=== PATIENT | female | born 1945 | race Caucasian/White ===

== ENCOUNTER → 2016-07-10 | Outpatient (CLI) | payer OTHER ==
[~2016-07-10] MED LIST: CTP/1 PO; METO-596 PO; QUET1TAB32 PO; SERT-234 PO; SIMV40TA2 PO
[2016-07-10 13:26] LABS: CALCIUM 9.3 mg/dl (8.5-10.1)
[2016-07-10 13:27] LABS: ALT/SGPT 25 U/L (12-78); BLOOD UREA NITROGEN 11 mg/dl (7-18); BUN/CREATININE RATIO 16.3 (10-20); CARBON DIOXIDE 29 mmol/L (21-32); CHLORIDE 97 mmol/L (98-107); CHOLESTEROL 144 mg/dl (0-200); CREATININE 0.68 mg/dl (0.60-1.20); GLUCOSE 96 mg/dl (70-99); POTASSIUM 4.2 mmol/L (3.5-5.1); SODIUM 134 mmol/L (136-145)
[2016-07-10 13:37] LABS: ALB/GLOB RATIO 1.1 (0.9-2); ALKALINE PHOSPHATASE 105 U/L (45-117); AST/SGOT 30 U/L (15-37); CHOLESTEROL/HDL RATIO 2.9; HDL CHOLESTEROL 50 mg/dl; LDL CHOLESTEROL CALCULATED 73 mg/dl; TRIGLYCERIDES 104 mg/dl (0-150); VERY LOW DENSITY LIPOPROT CALC 21 mg/dl
== END | disposition home or self-care (01) ==
LOC: C.LABPVFM 09:09
PROVIDERS: ATTEND Family Medicine
DX: I10 Essential (primary) hypertension (principal); E55.9 Vitamin D deficiency, unspecified; M81.0 Age-related osteoporosis without current pathological fracture; F32.9 Major depressive disorder, single episode, unspecified; E78.5 Hyperlipidemia, unspecified

== ENCOUNTER → 2016-07-15 | Outpatient (CLI) | payer OTHER | END | disposition home or self-care (01) | LOC: C.LABPVFM 09:45 | PROVIDERS: ATTEND Family Medicine | DX: R94.6 Abnormal results of thyroid function studies (principal) ==

== ENCOUNTER → 2017-03-01 | Outpatient (CLI) | payer OTHER ==
[2017-03-01 13:28] LABS: BLOOD UREA NITROGEN 11 mg/dl (7-18); CALCIUM 9.3 mg/dl (8.5-10.1); CARBON DIOXIDE 28 mmol/L (21-32); GLUCOSE 91 mg/dl (70-99); SODIUM 135 mmol/L (136-145)
== END | disposition home or self-care (01) ==
LOC: C.LABPVFM 09:50
PROVIDERS: ATTEND Family Medicine
DX: I10 Essential (primary) hypertension (principal); E55.9 Vitamin D deficiency, unspecified; M81.0 Age-related osteoporosis without current pathological fracture; E78.5 Hyperlipidemia, unspecified; F32.9 Major depressive disorder, single episode, unspecified

== ENCOUNTER 2017-05-08 13:01 | Inpatient (IN) | payer OTHER ==
[~2017-05-08] VITALS: Ht 152.4 cm; Wt 37.5 kg
[2017-05-08] VITALS (8 sets, daily range): BP systolic 94–151; BP diastolic 60–91; PULSE 83–98; TEMP 36.7–36.8; O2SAT 92–99; BMI 19.1
[2017-05-08] MEDS ORDERED: METHYLPREDNISOLONE 125 MG VIAL IV STA (13:11)
[2017-05-08] MEDS ORDERED: ALBUT/IPRATROP 3MG/0.5MG NEB 3 ML VIAL INH ONE (13:15)
[2017-05-08] MEDS ORDERED: LEVAQUIN 750MG / 150ML D5W IV STA (13:21)
[2017-05-08] MEDS ORDERED: PIPERACILLIN/TAZOBACTAM 4.5 GM/100ML D5W IV STA (13:21)
--- NOTE | 2017-05-08 13:31 | DIAGNOSTIC IMAGING REPORT ---
CHEST ONE VIEW PORTABLE HISTORY: 71 years-old Female eval for ptx/pna acute shortness of breath with hypoxia COMPARISON: Chest radiograph 09/29/2015, CT neck 03/16/2007 TECHNIQUE: Portable AP view of the chest FINDINGS: Cardiac silhouette is mildly enlarged, unchanged. Atherosclerosis of the aorta. Biapical pleural-parenchymal scarring is noted with emphysema. Mild perivascular congestion. Areas of chronic interstitial coarsening redemonstrated with new interstitial opacities, right greater than left. Additionally there are patchy bibasilar right greater than left alveolar opacities with trace right pleural effusion. The bones of the chest appear demineralized. Subacute or chronic fracture of the lateral left fifth rib. IMPRESSION: 1. Cardiomegaly and emphysema with chronic interstitial coarsening and mild pulmonary vascular congestion. 2. Patchy right greater than left bibasilar opacities with trace right pleural effusion suspicious for pneumonitis or atelectasis. The above report was generated using voice recognition software. It may contain grammatical, syntax or spelling errors. Electronically signed by: Shorty Byrd M.D. 05/08/2017 1:30 PM Dictated Date/Time: 05/08/2017 1:26 PM
[2017-05-08 13:44] LABS: BASO % 0.1 %; BASO ABS # 0.03 K/uL (0-0.2); EOS % 0.1 %; EOS ABS # 0.02 K/uL (0-0.5); HEMATOCRIT 42.9 % (37-47); HEMOGLOBIN 14.1 g/dL (12.0-16.0); IG# 0.12 K/uL (0.00-0.02); LYMPH % 10.2 %; LYMPH ABS # 2.08 K/uL (1.2-3.4); MEAN CELL VOLUME 89.6 fL (80-100); MEAN CORPUSCULAR HEMOGLOBIN 29.4 pg (25-34); MEAN CORPUSCULAR HGB CONC 32.9 g/dl (32-36); MEAN PLATELET VOLUME 9.5 fL (7.4-10.4); MONO % 6.3 %; MONO ABS # 1.28 K/uL (0.11-0.59); NEUT % 82.7 %; NEUT ABS # 16.92 K/uL (1.4-6.5); PLATELET COUNT 322 K/uL (130-400); RED CELL DISTRIBUTION WIDTH CV 14.5 % (11.5-14.5); RED CELL DISTRIBUTION WIDTH SD 47.5 fL (36.4-46.3); WHITE BLOOD COUNT 20.45 K/uL (4.8-10.8)
[2017-05-08 14:01] LABS: CALCIUM 8.8 mg/dl (8.5-10.1); CREATININE 0.78 mg/dl (0.60-1.20); POTASSIUM 4.4 mmol/L (3.5-5.1)
[2017-05-08 14:07] LABS: INR 1.1 (0.9-1.1); PTT PATIENT 24.5 SECONDS (21.0-31.0)
[2017-05-08] MEDS ORDERED: POLYETHYLENE (MIRALAX) 17 GM PACK PO PRN (14:15)
[2017-05-08] MEDS ORDERED: ONDANSETRON INJ 2 MG/ML 2 ML VIAL IV PRN (14:15)
[2017-05-08] MEDS ORDERED: ALUMINUM/MAGNESIUM/SIMETH (MAALOX MAX) 30 ML UDC PO PRN (14:15)
[2017-05-08] MEDS ORDERED: ACETAMINOPHEN 325 MG TAB PO PRN (14:15)
[2017-05-08 14:18] LABS: INFLUENZA A PCR Neg for Influ A (NEG); INFLUENZA B PCR Neg for Influ B (NEG)
[2017-05-08] MEDS ORDERED: TPRSR50 PO (14:44)
[2017-05-08] MEDS ORDERED: VTMD1000 PO (14:44)
[2017-05-08] MEDS ORDERED: ATOR80TA PO (14:44)
[2017-05-08] MEDS ORDERED: LOSA50TA6 PO (14:44)
[2017-05-08] MEDS ORDERED: SERT-234 PO (14:44)
[2017-05-08] MEDS ORDERED: QUET1TAB32 PO (14:44)
[2017-05-08] MEDS ORDERED: ASPEC81 PO (14:48)
--- NOTE | 2017-05-08 14:57 | History and Physical ---
History & Physical Date & Time of Service: May 08, 2017 at 14:56 Chief Complaint: Breathing Difficulty Primary Care Physician: Rowena Silveira M.D. Past Medical/Surgical History Medical Problems: (1) HLD (hyperlipidemia) (2) HTN (hypertension) Family History Cancer Diabetes mellitus Heart disease Hypertension Social History Smoking Status: Current Every Day Smoker Marital Status: in relationship Housing status: lives with friends Occupational Status: disabled Allergies Coded Allergies: No Known Allergies (Unverified , 09/18/03) Uncoded Allergies: NKDA (Allergy, Unknown, 09/17/03) Home Medications Scheduled Aspirin (Aspirin EC Low Dose), 1 TAB PO DAILY Atorvastatin (Lipitor), 80 MG PO HS Cholecalciferol (Vitamin D3), 3,000 UNIT PO DAILY Clonidine Hcl (Catapres), 0.2 MG PO BID Losartan Potassium (Cozaar), 1 TAB PO DAILY Metoprolol Succinate (Metoprolol Succinate ER), 100 MG PO DAILY Quetiapine Fumarate (Seroquel), 50 MG PO HS Sertraline (Zoloft), 100 MG PO BID Physical Exam Vital Signs Date Time Temp Pulse Resp B/P (MAP) Pulse Ox O2 Delivery O2 Flow Rate FiO2 05/08/17 14:10 78 05/08/17 14:00 84 16 159/83 99 BiPAP 05/08/17 13:39 86 22 141/119 100 BiPAP 10.0 05/08/17 13:27 98 99 100 05/08/17 13:26 98 25 98 BiPAP/CPAP 100 05/08/17 13:01 36.3 101 30 216/117 87 Non-Rebreather 15.0 05/08/17 13:01 36.3 101 30 216/117 66 Room Air 05/08/17 13:01 66 Room Air 05/08/17 13:01 87 Non-Rebreather Diagnostics Laboratory Results Results Past 24 Hours Test 05/08/17 13:13 05/08/17 13:25 05/08/17 13:42 Range/Units Influenza Type A (RT-PCR) Neg for Influ A NEG Influenza Type B (RT-PCR) Neg for Influ B NEG White Blood Count 20.45 4.8-10.8 K/uL Red Blood Count 4.79 4.2-5.4 M/uL Hemoglobin 14.1 12.0-16.0 g/dL Hematocrit 42.9 37-47 % Mean Corpuscular Volume 89.6 80-100 fL Mean Corpuscular Hemoglobin 29.4 25-34 pg Mean Corpuscular Hemoglobin Concent 32.9 32-36 g/dl Platelet Count 322 130-400 K/uL Mean Platelet Volume 9.5 7.4-10.4 fL Neutrophils (%) (Auto) 82.7 % Lymphocytes (%) (Auto) 10.2 % Monocytes (%) (Auto) 6.3 % Eosinophils (%) (Auto) 0.1 % Basophils (%) (Auto) 0.1 % Neutrophils # (Auto) 16.92 1.4-6.5 K/uL Lymphocytes # (Auto) 2.08 1.2-3.4 K/uL Monocytes # (Auto) 1.28 0.11-0.59 K/uL Eosinophils # (Auto) 0.02 0-0.5 K/uL Basophils # (Auto) 0.03 0-0.2 K/uL RDW Standard Deviation 47.5 36.4-46.3 fL RDW Coefficient of Variation 14.5 11.5-14.5 % Immature Granulocyte % (Auto) 0.6 % Immature Granulocyte # (Auto) 0.12 0.00-0.02 K/uL Prothrombin Time 11.1 9.0-12.0 SECONDS Prothromb Time International Ratio 1.1 0.9-1.1 Activated Partial Thromboplast Time 24.5 21.0-31.0 SECONDS Partial Thromboplastin Ratio 0.9 Sodium Level 139 136-145 mmol/L Potassium Level 4.4 3.5-5.1 mmol/L Chloride Level 103 98-107 mmol/L Carbon Dioxide Level 29 21-32 mmol/L Anion Gap 7.0 3-11 mmol/L Blood Urea Nitrogen 16 7-18 mg/dl Creatinine 0.78 0.60-1.20 mg/dl Est Creatinine Clear Calc Drug Dose 47.6 ml/min Estimated GFR () 89.9 Estimated GFR (Non- 77.6 BUN/Creatinine Ratio 20.3 10-20 Random Glucose 117 70-99 mg/dl Calcium Level 8.8 8.5-10.1 mg/dl Bedside Lactic Acid Venous 3.06 0.90-1.70 mmol/L Microbiology Results 05/08/17 Blood Culture, Received Pending 05/08/17 Blood Culture, Received Pending Impression Assessment and Plan admit #[id number] Resuscitation Status VTE Prophylaxis Will order VTE Prophylaxis: Yes
[2017-05-08] MEDS ORDERED: SODIUM CHLORIDE 0.9% 1000ML 1,000 ML IV ONE (15:00)
[2017-05-08] MEDS ORDERED: ERGOCALCIFEROL 50,000 INTER.UNIT CAP PO ONE (15:00)
[2017-05-08] MEDS ORDERED: ALBUT/IPRATROP 3MG/0.5MG NEB 3 ML VIAL INH PRN (15:15)
--- NOTE | 2017-05-08 15:31 | EMERGENCY ROOM VISIT NOTE ---
History Report prepared by Ivana: Christoph Mcgregor Under the Supervision of: Dr. Luis Felipe Lancaster M.D. First contact with patient: 13:04 Stated Complaint: BREATHING DIFFICULTY History of Present Illness The patient is a 71 year old female who presents to the Emergency Room with complaints of constant shortness of breath for the past 4 days. Per the nursing staff the patient has been feeling tired, and she has had a non-productive cough for the past 2 days. The patient's neighbors gave the patient a Ventolin and a DuoNeb. The patient was 90% on a non rebreather prior to arrival. She was 70 percent on room air per the paramedics. The patient states that she is not on oxygen at home, and she has no history of COPD, though she smokes and is trying to cut back. She states that she vomited earlier, and she has been having some swelling in her legs. The patient denies any fever, chest pain, and abdominal pain. She has a history of hypertension and high cholesterol. Source of History: patient, nursing staff Onset: 4 days Position: other (global) Symptom Intensity: severe Quality: other (shortness of breath) Timing: constant Associated Symptoms: + cough, + vomiting, No fevers, No chest pain, No abdominal pain Note: Associated symptoms: Leg swelling Review of Systems See HPI for pertinent positives & negatives. A total of 10 systems reviewed and were otherwise negative. Past Medical & Surgical Medical Problems: (1) Community acquired bacterial pneumonia (2) HLD (hyperlipidemia) (3) HTN (hypertension) (4) Sepsis Family History Cancer Diabetes mellitus Heart disease Hypertension Social History Alcohol Use: none Marital Status: in relationship Occupation Status: disabled Current/Historical Medications Scheduled Aspirin (Aspirin EC Low Dose), 1 TAB PO DAILY Atorvastatin (Lipitor), 80 MG PO HS Cholecalciferol (Vitamin D3), 3,000 UNIT PO DAILY Clonidine Hcl (Catapres), 0.2 MG PO BID Losartan Potassium (Cozaar), 1 TAB PO DAILY Metoprolol Succinate (Metoprolol Succinate ER), 100 MG PO DAILY Quetiapine Fumarate (Seroquel), 50 MG PO HS Sertraline (Zoloft), 100 MG PO BID Allergies Coded Allergies: No Known Allergies (Unverified , 09/18/03) Physical Exam Vital Signs Date Time Temp Pulse Resp B/P (MAP) Pulse Ox O2 Delivery O2 Flow Rate FiO2 05/08/17 14:10 78 05/08/17 14:01 82 23 159/83 100 BiPAP 05/08/17 14:00 84 16 159/83 99 BiPAP 05/08/17 13:39 86 22 141/119 100 BiPAP 10.0 05/08/17 13:38 141/119 05/08/17 13:27 98 99 100 05/08/17 13:26 98 25 98 BiPAP/CPAP 100 05/08/17 13:01 36.3 101 30 216/117 87 Non-Rebreather 15.0 05/08/17 13:01 36.3 101 30 216/117 66 Room Air 05/08/17 13:01 66 Room Air 05/08/17 13:01 87 Non-Rebreather Physical Exam Constitutional: Vital signs reviewed. Eyes: Pupils are equal round reactive to light. Conjunctiva are noninjected. ENT: Pharynx is clear without erythema or exudate. Mucous membranes are moist. Neck supple without meningeal signs. Respiratory: Poor air entry bilaterally. Expiratory wheezing diffusely. Pulse Ox was 62% on room air. Tachypneic. Cardiovascular: Regular rate and rhythm. No rubs or gallops. GI: Soft, nondistended and nontender. Bowel sounds are present. Musculoskeletal: Bilateral lower extremity pitting edema. Integumentary: No cyanosis. Neurological: The patient is awake and alert. No focal deficits. Psychiatric: Anxious appearing. Medical Decision & Procedures ER Provider Diagnostic Interpretation: Radiology results as stated below per my review and the radiologist's interpretation: CHEST ONE VIEW PORTABLE HISTORY: 71 years-old Female eval for ptx/pna acute shortness of breath with hypoxia COMPARISON: Chest radiograph 09/29/2015, CT neck 03/16/2007 TECHNIQUE: Portable AP view of the chest FINDINGS: Cardiac silhouette is mildly enlarged, unchanged. Atherosclerosis of the aorta. Biapical pleural-parenchymal scarring is noted with emphysema. Mild perivascular congestion. Areas of chronic interstitial coarsening redemonstrated with new interstitial opacities, right greater than left. Additionally there are patchy bibasilar right greater than left alveolar opacities with trace right pleural effusion. The bones of the chest appear demineralized. Subacute or chronic fracture of the lateral left fifth rib. IMPRESSION: 1. Cardiomegaly and emphysema with chronic interstitial coarsening and mild pulmonary vascular congestion. 2. Patchy right greater than left bibasilar opacities with trace right pleural effusion suspicious for pneumonitis or atelectasis. The above report was generated using voice recognition software. It may contain grammatical, syntax or spelling errors. Electronically signed by: Shorty Byrd M.D. 05/08/2017 1:30 PM Dictated Date/Time: 05/08/2017 1:26 PM Laboratory Results 05/08/17 13:25 Red Blood Count 4.79, Mean Corpuscular Volume 89.6, Mean Corpuscular Hemoglobin 29.4, Mean Corpuscular Hemoglobin Concent 32.9, Mean Platelet Volume 9.5, Neutrophils (%) (Auto) 82.7, Lymphocytes (%) (Auto) 10.2, Monocytes (%) (Auto) 6.3, Eosinophils (%) (Auto) 0.1, Basophils (%) (Auto) 0.1, Neutrophils # (Auto) 16.92, Lymphocytes # (Auto) 2.08, Monocytes # (Auto) 1.28, Eosinophils # (Auto) 0.02, Basophils # (Auto) 0.03 05/08/17 13:25 Test 05/08/17 13:13 05/08/17 13:25 05/08/17 13:42 Influenza Type A (RT-PCR) Neg for Influ A (NEG) Influenza Type B (RT-PCR) Neg for Influ B (NEG) White Blood Count 20.45 K/uL (4.8-10.8) Red Blood Count 4.79 M/uL (4.2-5.4) Hemoglobin 14.1 g/dL (12.0-16.0) Hematocrit 42.9 % (37-47) Mean Corpuscular Volume 89.6 fL (80-100) Mean Corpuscular Hemoglobin 29.4 pg (25-34) Mean Corpuscular Hemoglobin Concent 32.9 g/dl (32-36) Platelet Count 322 K/uL (130-400) Mean Platelet Volume 9.5 fL (7.4-10.4) Neutrophils (%) (Auto) 82.7 % Lymphocytes (%) (Auto) 10.2 % Monocytes (%) (Auto) 6.3 % Eosinophils (%) (Auto) 0.1 % Basophils (%) (Auto) 0.1 % Neutrophils # (Auto) 16.92 K/uL (1.4-6.5) Lymphocytes # (Auto) 2.08 K/uL (1.2-3.4) Monocytes # (Auto) 1.28 K/uL (0.11-0.59) Eosinophils # (Auto) 0.02 K/uL (0-0.5) Basophils # (Auto) 0.03 K/uL (0-0.2) RDW Standard Deviation 47.5 fL (36.4-46.3) RDW Coefficient of Variation 14.5 % (11.5-14.5) Immature Granulocyte % (Auto) 0.6 % Immature Granulocyte # (Auto) 0.12 K/uL (0.00-0.02) Prothrombin Time 11.1 SECONDS (9.0-12.0) Prothromb Time International Ratio 1.1 (0.9-1.1) Activated Partial Thromboplast Time 24.5 SECONDS (21.0-31.0) Partial Thromboplastin Ratio 0.9 Anion Gap 7.0 mmol/L (3-11) Est Creatinine Clear Calc Drug Dose 47.6 ml/min Estimated GFR () 89.9 Estimated GFR (Non- 77.6 BUN/Creatinine Ratio 20.3 (10-20) Calcium Level 8.8 mg/dl (8.5-10.1) Bedside Lactic Acid Venous 3.06 mmol/L (0.90-1.70) Laboratory results as reviewed by me. Medications Administered Medications (Trade) Dose Ordered Sig/Sam Route Start Time Stop Time Status Last Admin Dose Admin Methylprednisolone Sodium Succinate (Solu-Medrol IV) 125 mg NOW STAT IV 05/08/17 13:11 05/08/17 13:13 DC 05/08/17 13:11 125 MG Albuterol/ Ipratropium (Duoneb) 12 ml ONE ONCE INH 05/08/17 13:15 05/08/17 13:16 DC 05/08/17 13:26 12 ML Levofloxacin (Levaquin / D5W) 750 mg NOW STAT IV 05/08/17 13:21 05/08/17 13:22 DC 05/08/17 14:21 750 MG Piperacillin Sod/ Tazobactam Sod (Zosyn Iv) 4.5 gm NOW STAT IV 05/08/17 13:21 05/08/17 13:22 DC 05/08/17 13:31 4.5 GM ECG Per My Interpretation Indication: SOB/dyspnea Rate (beats per minute): 100 Rhythm: normal sinus Findings: other (Limited interpretation due to artifact. No ST elevations. No PVCs.) ED Course 1304: The patient was evaluated in room C9. A complete history and physical exam was performed. 1311: Solu-Medrol 125mg IV 1315: DuoNeb 12ml INH 1321: Zosyn 4.5gm IV, Levofloxacin 750mg IV 1327: I reevaluated the patient, and her pulse ox was 100% on BIPAP, and she states that she is feeling much better. I discussed the test results with her and her son. She also said the she has no objection to intubation if indicated. 1356: I reevaluated the patient, and her blood pressure was significantly improved. She is still satting 99% on BIPAP. 1404: I discussed the patient's case with Dr. Shai PERERA Hospitalist, and he is going to evaluated the patient for further treatment. 1455: I reevaluated the patient, and she feels much better. She is having diminished wheezing on examination. Medical Decision This is a 71-year-old female presents with shortness of breath. Differential diagnosis includes COPD exacerbation, pneumothorax, pneumonia, ARDS, sepsis. I did perform a limited focused review of portions of the patient's old chart on the electronic medical record. The patient has had no recent pertinent visits to this hospital. I did evaluate the patient as noted above. IV access was established. The patient was placed on a continuous compliance monitor. The patient is hypoxemic with an O2 saturation of 60% on room air. She is able to mentate and answer questions. She was placed on a nonrebreather mask and her O2 saturation went up to the 90s. I did order a continuous hour-long DuoNeb. She was also given Solu-Medrol 125 mg IV. She was placed on BiPAP. I did order and personally review the patient's 12-lead EKG and chest x-ray as described above. Blood cultures were obtained. I did treat her with IV Levaquin and Zosyn. I did order and review the patient's blood work as noted in the electronic medical record. Her white blood cell count and lactic acid are elevated. I did reassess the patient multiple times. She is doing better on BiPAP. Her wheezing has diminished. I did discuss the test results with the patient and her family. I did discuss case with the hospitalist and rehabilitation caseworker. Medication Reconcilliation Current Medication List: was personally reviewed by me Blood Pressure Screening Patient's blood pressure: Elevated blood pressure Monitored by the hospitalist Consults Time Called: 1358 Consulting Physician: Dr. Shai PERERA Hospitalist Returned Call: 1404 I discussed the patient's case with Dr. Shai PERERA Hospitalist, and he is going to evaluated the patient for further treatment. Impression Primary Impression: Respiratory failure Additional Impressions: Hypoxemia Multifocal pneumonia Sepsis Critical Care I have personally spent 36 minutes of critical care time in the direct management of this patient. This includes bedside care, interpretation of diagnostic studies, and testing, discussion with consultants, patient, and family members, and other required patient management activities. This 36 minutes is in excess of all separately billable procedures. Scribe Attestation The scribe's documentation has been prepared under my direct and personally reviewed by me in its entirety. I confirm that the note above accurately reflects all work, treatment, procedures, and medical decision making performed by me. Departure Information Dispostion Being Evaluated By Hospitalist Prescriptions Aspirin (Aspirin EC Low Dose) 81 Mg Ectab 1 TAB PO DAILY, #1 Prov: Jules iGbbons D.OYonathan 05/08/17 Cholecalciferol (Vitamin D3) 1,000 Inter.unit Tab 3000 UNIT PO DAILY, #1 Prov: Jules Gibbons D.OYonathan 05/08/17 Metoprolol Succinate (Metoprolol Succinate ER) 50 Mg Tabcr 100 MG PO DAILY, #1 Prov: Jules Gibbons D.O. 05/08/17 Losartan Potassium (COZAAR) 50 Mg Tab 1 TAB PO DAILY for 30 Days, #30 TAB 5 Refills Prov: Jules Gibbons D.O. 05/08/17 Atorvastatin (LIPITOR) 80 Mg Tab 80 MG PO HS, #30 TAB Prov: Jules Gibbons D.OYonathan 05/08/17 Quetiapine Fumarate (Seroquel) 50 Mg Tab 50 MG PO HS, #1 0 Refills Prov: Jules Gibobns D.O. 05/08/17 Sertraline (Zoloft) 100 Mg Tab 100 MG PO BID, #1 0 Refills Prov: Jules Gibbons D.O. 05/08/17 Referrals Rowena Silveira M.D. (PCP) Problem Qualifiers Primary Impression: Respiratory failure Chronicity: acute Respiratory failure complication: hypoxia Qualified Codes : J96.01 - Acute respiratory failure with hypoxia Additional Impressions: Sepsis Sepsis type: sepsis due to unspecified organism Qualified Codes: A41.9 - Sepsis, unspecified organism
--- NOTE | 2017-05-08 15:31 | HISTORY & PHYSICAL EXAMINATION ---
DATE OF ADMISSION: 05/08/2017 CHIEF COMPLAINT: Shortness of breath. HISTORY OF PRESENT ILLNESS: History is somewhat limited due to the patient being on BiPAP; however, as best she is able to, she relates that she has been sick generally with respiratory illness for several weeks, just not really feel right, but not feeling acutely terrible and then today, she abruptly noticed feeling far worse very much short of breath and came to the ER for further evaluation, where she was found to be significantly hypoxic and had a rather extensive pneumonia. Per the ER physician, she related a constant shortness of breath for the past 4 days, feeling tired, nonproductive cough for about 2 days, neighbors gave her nebulizers. She was 90% on a nonrebreather prior to arrival. She does smoke about 2/3-3/4 of a pack a day. She otherwise has no other acute symptoms. REVIEW OF SYSTEMS: Otherwise negative except for as above. PAST MEDICAL HISTORY: Includes a longstanding tobacco abuse without a formal diagnosis of COPD, depression, dyslipidemia, hypertension with a significant white coat component, carotid artery disease being followed expectantly, osteoporosis, and vitamin D deficiency. HOME MEDICATIONS: Aspirin 81 mg daily, Lipitor 80 mg daily, clonidine 0.2 b.i.d., losartan 50 mg daily, metoprolol succinate ER 100 mg daily, Seroquel 50 mg at bedtime, Zoloft 100 mg b.i.d., and vitamin D3 of 3000 international units daily. PAST SURGICAL HISTORY: Includes biceps tendon repair. FAMILY HISTORY: Cancer, diabetes, hypertension, and heart disease. SOCIAL HISTORY: She is currently smoking about 3/4 of a pack a day. She has been a smoker for probably 50-60 years, giving her probably at least 40-50 pack years of smoking if she was always at the current rate. ALLERGIES: No known drug allergies. PHYSICAL EXAMINATION: VITAL SIGNS: Temperature 36.3, pulse 101, respiratory rate 30, blood pressure 216/117 and later down to 159/83, and 66% on room air, 87% on a nonrebreather, but 100% on 100% FiO2 BiPAP. GENERAL: She is awake, alert, and oriented x3, fatigued, and in mild respiratory distress, but appearing relatively comfortable on the BiPAP. HEENT: Normocephalic and atraumatic. Mucous membranes moist as best can be assessed. CARDIOVASCULAR: Very distant. Sounds to be regular, maybe slightly tachycardic without rubs, murmurs, or gallops. LUNGS: Markedly diminished throughout with very little air entry. No notable rales, rhonchi or wheezes. The ER physician noted to me she was wheezing earlier, but at this point in time it is mostly significant for diminished air entry. There is no accessory muscle use in general, except for maybe mild neck muscle use. ABDOMEN: Soft, nondistended, and nontender. No masses or organomegaly. EXTREMITIES: Without cyanosis, clubbing or edema. No calf tenderness. SKIN: Shows no rashes and no pallor or icterus. NEUROLOGIC: Shows cranial nerves II-XII to be grossly intact. Gross motor and sensory are intact. MUSCULOSKELETAL: Shows a bit of a barrel chested posture with a significant thoracic kyphosis. Her bilateral thoracic paraspinals are high tone and decreased range of motion. Manipulative medicine directed this region was done with improvement and soft tissue texture. The patient tolerated it well. MENTAL STATE: Shows good recent and remote recall. Normal mood and affect. Good judgment and insight. LABS AND DIAGNOSTICS: EKG is almost uninterpretable due to wandering baseline and electrical interference. CBC shows a white count of 20.45 with 83% neutrophils, hemoglobin 14.1, and platelets 322. Basic metabolic panel with sodium 139, potassium 4.4, chloride 103, CO2 of 29, BUN 16, creatinine 0.78, calcium 8.8, and glucose 117. [id number] lactate of 3.06. PT of 11.1 and PTT of 24.5. Flu swabs are negative. Chest x-ray shows emphysematous type changes, hyperinflated. It shows patchy right greater than left bibasilar opacities and trace right pleural effusion, most suspicious for infection, questionable pulmonary vascular engorgement. ASSESSMENT AND PLAN: 1. Acute hypoxic respiratory failure. This appears to be due to the pneumonia superimposed on likely occult chronic obstructive pulmonary disease. We will treat the underlying factors as well as supportive care. 2. Community-acquired pneumonia. We will treat with Levaquin and follow. She does appear septic from this on the basis of her white count. Heart rate and respiratory rate will also be checking and a follow up lactate level in the short interval. 3. Chronic obstructive pulmonary disease exacerbation. She has presumed chronic obstructive pulmonary disease due to her emphysema on x-ray, her exam findings, her extensive pack years and her overall situation. Certainly at some point in the intermediate future, PFTs will need to be done to confirm this, but in the immediate period, we will manage this chronic obstructive pulmonary disease exacerbation caused by the pneumonia with steroids and nebulizers and likely at time of discharge, we will at least need to be on anticholinergic inhaler and p.r.n. beta agonist possibly more depending on her clinical status and I did discuss with her the small, but real possibility of needing home oxygen for the short term. 4. Tobacco abuse. We discussed smoking cessation multiple times. She is willing at this point in time. Currently, we will follow expectantly. 5. Hypertension. She has noted by her PCP to have a rather significant white coat effect. She does not appear to be showing symptoms related to high blood pressure at this point in time. We will continue to follow. We will treat with her home meds, but hold the losartan because of the sepsis until it is clear that she is hemodynamically stable. 6. Hyperlipidemia. Continue her Lipitor. 7. Osteoporosis and vitamin D deficiency. Continue vitamin D replacement. Her last level about a year ago was still low at 26.3. Outpatient levels likely should be rechecked in the near future. 8. Deep venous thrombosis prophylaxis, Lovenox. 9. Depression. Continue her home meds. 10. Disposition: She will be admitted to [facility] to telemetry due to the severity of her respiratory failure at this point in time and the need for ongoing BiPAP and she is a level 1 full code. MTDD
[2017-05-08] MEDS: ALBUT/IPRATROP 3MG/0.5MG NEB 3 ML VIAL INH SCH ×2 (16:00→19:20)
[2017-05-08] MEDS: SODIUM CHLOR 0.45% + 20MEQ KCL 1,000 ML IV SCH ×2 (16:13→23:32)
[2017-05-08] MEDS: ENOXAPARIN 40 MG/0.4 ML SYR SC SCH (16:13)
[2017-05-08] MEDS: METHYLPREDNISOLONE IV 60 MG in SYRINGE 0 ML IV SCH (20:59)
[2017-05-08] MEDS: CLONIDINE HCL 0.1 MG TAB PO SCH (20:59)
[2017-05-08] MEDS: QUETIAPINE FUMARATE 25 MG TAB PO SCH (20:59)
[2017-05-08] MEDS: ATORVASTATIN 40 MG TAB PO SCH (20:59)
[2017-05-08] MEDS: SERTRALINE HCL 100 MG TAB PO SCH (20:59)
[2017-05-09] VITALS (12 sets, daily range): BP systolic 104–144; BP diastolic 65–85; PULSE 75–102; TEMP 36.7–37; O2SAT 93–100; Ht 152.4 cm; Wt 37.5 kg
[2017-05-09 04:31] LABS: BASO % 0.1 %; BASO ABS # 0.01 K/uL (0-0.2); HEMOGLOBIN 11.1 g/dL (12.0-16.0); IG# 0.04 K/uL (0.00-0.02); LYMPH % 6.9 %; LYMPH ABS # 1.01 K/uL (1.2-3.4); MEAN CELL VOLUME 86.4 fL (80-100); MEAN CORPUSCULAR HEMOGLOBIN 29.1 pg (25-34); MEAN CORPUSCULAR HGB CONC 33.6 g/dl (32-36); MONO % 4.4 %; MONO ABS # 0.65 K/uL (0.11-0.59); NEUT % 88.3 %; NEUT ABS # 13.02 K/uL (1.4-6.5); PLATELET COUNT 218 K/uL (130-400); RED CELL DISTRIBUTION WIDTH CV 14.5 % (11.5-14.5); RED CELL DISTRIBUTION WIDTH SD 45.8 fL (36.4-46.3); WHITE BLOOD COUNT 14.73 K/uL (4.8-10.8)
[2017-05-09 04:51] LABS: CALCIUM 8.7 mg/dl (8.5-10.1); CREATININE 0.77 mg/dl (0.60-1.20); POTASSIUM 4.8 mmol/L (3.5-5.1)
[2017-05-09] MEDS: ALBUT/IPRATROP 3MG/0.5MG NEB 3 ML VIAL INH SCH ×4 (07:00→19:27)
[2017-05-09] MEDS: SODIUM CHLOR 0.45% + 20MEQ KCL 1,000 ML IV SCH (07:10)
[2017-05-09] MEDS: METHYLPREDNISOLONE IV 60 MG in SYRINGE 0 ML IV SCH ×3 (07:10→20:44)
--- NOTE | 2017-05-09 08:32 | Clinical Documentation Query ---
CLINICAL DOCUMENTATION QUERY 71 yo female admitted with acute respiratory failure, hypoxia, pneumonia, and exacerbated COPD. BMI is 17.4 In your clinical opinion is this patient being managed for: (x ) Severe protein-calorie malnutrition ( ) Not Agree ( ) Other explanation of clinical findings (Please Explain) ( ) Unable to determine (Please Define) ( ) Need to Discuss The medical record reflects the following clinical findings, treatment, and risk factors. Clinical Indicators: As above Treatment: Diet, hydration, smoking cessation Risk Factors: Age, smoker, acute respiratory failure Please clarify and document your clinical opinion in the progress notes and discharge summary. Terms such as "probable", "suspected", "likely", "questionable", "possible", or "still to be ruled out" are acceptable. IF IN AGREEMENT, YOU MUST DOCUMENT ABOVE DIAGNOSTIC STATEMENT IN DAILY PROGRESS NOTES AND DISCHARGE SUMMARY. This document is not part of the patient's record. Thank You, Janet Vogel RN [phone]
[2017-05-09] MEDS: CLONIDINE HCL 0.1 MG TAB PO SCH ×2 (08:54→20:44)
[2017-05-09] MEDS: METOPROLOL SUCC 50MG EXT REL TAB PO SCH (08:54)
[2017-05-09] MEDS: CHOLECALCIFEROL 1000 INTER.UNIT TAB PO SCH (08:54)
[2017-05-09] MEDS: SERTRALINE HCL 100 MG TAB PO SCH ×2 (08:54→20:44)
[2017-05-09] MEDS: ASPIRIN 81 MG ECTAB PO SCH (08:54)
--- NOTE | 2017-05-09 09:44 | Hospitalist Progress Note ---
Hospitalist Progress Note Date of Service May 09, 2017. (Jessica Pakr ., JEREDC) Subjective Pt evaluation today including: conversation w/ patient, physical exam, chart review, lab review, review of inpatient medication list Pain: None PO Intake: Tolerating PO diet, decreased appetite Voiding: no voiding problems Patient reports feeling better today. She reports a productive cough with yellow sputum and wheezing but denies shortness of breath. She complains of generalized weakness and fatigue. She is tolerating her diet but notes that her appetite is decreased. The patient denies fevers, chills, sweats, chest pain, palpitations, claudication, shortness of breath, nausea, vomiting, abdominal pain, dysuria, hematuria, urinary retention, paralysis, focal motor weakness, numbness and tingling. Additional Comments: See HPI for pertinent positives and negatives. All other systems reviewed and negative. (Jessica Park ., JOSE-C) Objective Vital Signs Date Time Temp Pulse Resp B/P (MAP) Pulse Ox O2 Delivery O2 Flow Rate FiO2 05/09/17 08:00 Nasal Cannula 6.0 05/09/17 07:30 36.8 89 22 137/85 (102) 94 Nasal Cannula 5.0 05/09/17 07:00 75 18 98 Nasal Cannula 6.0 05/09/17 04:00 Nasal Cannula 6.0 05/09/17 03:30 36.9 82 18 118/71 (87) 98 Room Air 6.0 05/09/17 00:00 Nasal Cannula 6.0 05/08/17 23:33 36.8 86 22 151/91 (111) 97 Nasal Cannula 6.0 05/08/17 20:00 Nasal Cannula 6.0 05/08/17 19:32 36.7 85 24 105/64 (78) 93 Nasal Cannula 6.0 05/08/17 19:20 84 18 96 Nasal Cannula 6.0 05/08/17 17:00 93 Nasal Cannula 6.0 05/08/17 15:46 83 95 100 05/08/17 15:30 36.7 24 94/60 (71) 92 Non-Rebreather 15.0 05/08/17 15:30 36.7 24 94/60 95 Non-Rebreather 15.0 100 05/08/17 15:00 36.3 84 23 154/81 100 05/08/17 14:31 84 23 154/81 100 BiPAP 05/08/17 14:10 78 05/08/17 14:01 82 23 159/83 100 BiPAP 05/08/17 14:00 84 16 159/83 99 BiPAP 05/08/17 13:39 86 22 141/119 100 BiPAP 10.0 05/08/17 13:38 141/119 05/08/17 13:27 98 99 100 05/08/17 13:26 98 25 98 BiPAP/CPAP 100 05/08/17 13:01 36.3 101 30 216/117 87 Non-Rebreather 15.0 05/08/17 13:01 36.3 101 30 216/117 66 Room Air 05/08/17 13:01 66 Room Air 05/08/17 13:01 87 Non-Rebreather (Jessica Park ., PA-C) Physical Exam Notes: General appearance: +Underweight, Well-developed, no apparent distress Head: Normocephalic, atraumatic Eyes: Normal inspection, PERRL, EOMI ENT: Normal ENT inspection, hearing grossly normal, pharynx normal Neck: Supple, no JVD, trachea midline Respiratory/Chest: +Very diminished breath sounds, tight with poor air movement. Currently on 5L NC. Lungs clear to auscultation, no respiratory distress Cardiovascular: Regular rate & rhythm, no gallop, no murmur Abdomen/GI: Normal bowel sounds, non-tender, soft Extremities/Musculoskeletal: Normal inspection, no calf tenderness, no pedal edema Neurological/Psych: Alert, normal mood/affect, oriented x 3 Skin: Normal color, warm/dry, no rash (Jessica Park ., PA-C) Laboratory Results Last 24 Hours Test 05/08/17 13:13 05/08/17 13:25 05/08/17 13:42 05/08/17 16:45 Influenza Type A (RT-PCR) Neg for Influ A Influenza Type B (RT-PCR) Neg for Influ B White Blood Count 20.45 K/uL Red Blood Count 4.79 M/uL Hemoglobin 14.1 g/dL Hematocrit 42.9 % Mean Corpuscular Volume 89.6 fL Mean Corpuscular Hemoglobin 29.4 pg Mean Corpuscular Hemoglobin Concent 32.9 g/dl Platelet Count 322 K/uL Mean Platelet Volume 9.5 fL Neutrophils (%) (Auto) 82.7 % Lymphocytes (%) (Auto) 10.2 % Monocytes (%) (Auto) 6.3 % Eosinophils (%) (Auto) 0.1 % Basophils (%) (Auto) 0.1 % Neutrophils # (Auto) 16.92 K/uL Lymphocytes # (Auto) 2.08 K/uL Monocytes # (Auto) 1.28 K/uL Eosinophils # (Auto) 0.02 K/uL Basophils # (Auto) 0.03 K/uL RDW Standard Deviation 47.5 fL RDW Coefficient of Variation 14.5 % Immature Granulocyte % (Auto) 0.6 % Immature Granulocyte # (Auto) 0.12 K/uL Prothrombin Time 11.1 SECONDS Prothromb Time International Ratio 1.1 Activated Partial Thromboplast Time 24.5 SECONDS Partial Thromboplastin Ratio 0.9 Sodium Level 139 mmol/L Potassium Level 4.4 mmol/L Chloride Level 103 mmol/L Carbon Dioxide Level 29 mmol/L Anion Gap 7.0 mmol/L Blood Urea Nitrogen 16 mg/dl Creatinine 0.78 mg/dl Est Creatinine Clear Calc Drug Dose 47.6 ml/min Estimated GFR () 89.9 Estimated GFR (Non- 77.6 BUN/Creatinine Ratio 20.3 Random Glucose 117 mg/dl Calcium Level 8.8 mg/dl Bedside Lactic Acid Venous 3.06 mmol/L Lactic Acid Level 1.8 mmol/L Hepatitis C Antibody Screen NEG Test 05/09/17 04:00 White Blood Count 14.73 K/uL Red Blood Count 3.82 M/uL Hemoglobin 11.1 g/dL Hematocrit 33.0 % Mean Corpuscular Volume 86.4 fL Mean Corpuscular Hemoglobin 29.1 pg Mean Corpuscular Hemoglobin Concent 33.6 g/dl Platelet Count 218 K/uL Mean Platelet Volume 9.0 fL Neutrophils (%) (Auto) 88.3 % Lymphocytes (%) (Auto) 6.9 % Monocytes (%) (Auto) 4.4 % Eosinophils (%) (Auto) 0.0 % Basophils (%) (Auto) 0.1 % Neutrophils # (Auto) 13.02 K/uL Lymphocytes # (Auto) 1.01 K/uL Monocytes # (Auto) 0.65 K/uL Eosinophils # (Auto) 0.00 K/uL Basophils # (Auto) 0.01 K/uL RDW Standard Deviation 45.8 fL RDW Coefficient of Variation 14.5 % Immature Granulocyte % (Auto) 0.3 % Immature Granulocyte # (Auto) 0.04 K/uL Sodium Level 135 mmol/L Potassium Level 4.8 mmol/L Chloride Level 103 mmol/L Carbon Dioxide Level 26 mmol/L Anion Gap 6.0 mmol/L Blood Urea Nitrogen 13 mg/dl Creatinine 0.77 mg/dl Est Creatinine Clear Calc Drug Dose 43.9 ml/min Estimated GFR () 91.3 Estimated GFR (Non- 78.8 BUN/Creatinine Ratio 17.0 Random Glucose 96 mg/dl Calcium Level 8.7 mg/dl (Jessica Park PA-C) Assessment and Plan 71 y/o female with a history carotid artery disease, HTN, HLD, COPD, depression , and osteoporosis who presents with PNA and COPD exacerbation. Acute hypoxic respiratory failure and sepsis secondary to CAP--improving -Admit to telemetry. No acute events overnight, pt in sinus rhythm with HR 70s- 90s -O2 by protocol. Off BiPAP, currently on 5L NC. Does not wear any oxygen at home -Continue Levaquin, day #2 -Lactic acidosis resolved, tachycardia resolved -D/C IVF -Leukocytosis improving. WBC 14.73 on 05/09, down from 20.45 -Continue scheduled DuoNebs -Flu PCR negative COPD exacerbation secondary to CAP--stable, lungs sounds very tight/diminished -Continue Solu-Medrol 60 mg IV q8h -Nebs as above -Recommend outpatient PFTs to confirm COPD Tobacco use -Encouraged smoking cessation HTN, HLD--stable -Continue ASA, clonidine 0.2 mg PO BID, Toprol XL 100 mg PO qd, Lipitor 80 mg PO qd -Resume losartan 50 mg PO qd as BP stable and sepsis improving Depression--stable -Continue Seroquel 50 mg PO qd and Zoloft 100 mg PO BID Osteoporosis, vitamin D deficiency -Continue Vitamin D supplement Severe protein calorie malnutrition -Boost TIDM DVT prophylaxis -Enoxaparin 40 mg SC q24h Code Status -Level I, FULL RESUSCITATION STATUS Dispo -Lives home alone -PT/OT pending (Jessica Park PA-C) I personally interviewed and examined the patient. I agree with history of present illness and physical exam mentioned above, I also performed my own history taking and examination. Past medical history and review of system has been obtained by myself I reviewed all pertinent labs and studies Reviewed current medications I discussed and formulated of the assessment and plan mentioned above. Please refer to the Summary mentioned below. 71-year-old female with hypertension, dyslipidemia, COPD, carotid artery disease who presented to the hospital with acute respiratory failure secondary to pneumonia and COPD exacerbation. Patient was placed initially on BiPAP, started on antibiotics/bronchodilators and steroids. Patient significantly improved, currently off BiPAP, continue supportive care, continue steroids/bronchodilators/antibiotic. When appropriate start physical therapy traditional therapy General Appearance: not in acute distress Eyes: normal Sclerae, extraocular muscle intact ENT: hearing grossly normal Neck: supple Respiratory/Chest: normal air entry bilateral ,no respiratory distress, no accessory muscle use Cardiovascular: regular rate, rhythm, no murmur Abdomen: non tender, soft, no masses Extremities: no edema Neurologic/Psychiatric: Awake alert oriented times place and person moves all extremities sensation intact cranial nerves II-12 appear to be intact Skin: normal color, warm/dry, no rash Sahra Green MD, [facility] hospitalist group (Sahra Amin MD)
[2017-05-09] MEDS: LEVOFLOXACIN 750 MG TAB PO SCH (11:14)
[2017-05-09] MEDS ORDERED: BOOST PLUS VANILLA PO SCH (16:45)
[2017-05-09] MEDS: ENOXAPARIN 40 MG/0.4 ML SYR SC SCH (17:31)
[2017-05-09] MEDS: QUETIAPINE FUMARATE 25 MG TAB PO SCH (20:44)
[2017-05-09] MEDS: ATORVASTATIN 40 MG TAB PO SCH (20:44)
[2017-05-10] VITALS (10 sets, daily range): BP systolic 103–176; BP diastolic 68–89; PULSE 69–94; TEMP 36.3–36.9; O2SAT 93–100
[2017-05-10] MEDS: METHYLPREDNISOLONE IV 60 MG in SYRINGE 0 ML IV SCH ×3 (04:27→22:39)
[2017-05-10 05:46] LABS: HEMATOCRIT 34.8 % (37-47); HEMOGLOBIN 11.5 g/dL (12.0-16.0); MEAN CELL VOLUME 86.4 fL (80-100); MEAN CORPUSCULAR HEMOGLOBIN 28.5 pg (25-34); MEAN PLATELET VOLUME 9.4 fL (7.4-10.4); PLATELET COUNT 220 K/uL (130-400); RED CELL DISTRIBUTION WIDTH CV 14.5 % (11.5-14.5); RED CELL DISTRIBUTION WIDTH SD 45.8 fL (36.4-46.3); WHITE BLOOD COUNT 10.45 K/uL (4.8-10.8)
[2017-05-10 06:22] LABS: ALBUMIN 2.8 gm/dl (3.4-5.0); CALCIUM 8.7 mg/dl (8.5-10.1); CREATININE 0.62 mg/dl (0.60-1.20); POTASSIUM 4.4 mmol/L (3.5-5.1)
[2017-05-10] MEDS: ALBUT/IPRATROP 3MG/0.5MG NEB 3 ML VIAL INH SCH ×4 (07:04→19:59)
[2017-05-10] MEDS: CLONIDINE HCL 0.1 MG TAB PO SCH ×2 (07:42→20:24)
[2017-05-10] MEDS: CHOLECALCIFEROL 1000 INTER.UNIT TAB PO SCH (07:42)
[2017-05-10] MEDS: METOPROLOL SUCC 50MG EXT REL TAB PO SCH (07:42)
[2017-05-10] MEDS: SERTRALINE HCL 100 MG TAB PO SCH ×2 (07:42→20:23)
[2017-05-10] MEDS: BOOST PLUS VANILLA PO SCH ×2 (07:43→17:36)
[2017-05-10] MEDS: ASPIRIN 81 MG ECTAB PO SCH (07:43)
[2017-05-10] MEDS: LOSARTAN POTASSIUM 50 MG TAB PO SCH (07:43)
[2017-05-10] MEDS: LEVOFLOXACIN 750 MG TAB PO SCH (11:01)
[2017-05-10] MEDS: BOOST BREEZE NUTRITION DRINK 1 BOX PO SCH (11:01)
--- NOTE | 2017-05-10 13:41 | Hospitalist Progress Note ---
Hospitalist Progress Note Date of Service May 10, 2017. (Jessica Park ., JEREDC) Subjective Pt evaluation today including: conversation w/ patient, physical exam, chart review, lab review, review of inpatient medication list Pain: None PO Intake: Tolerating PO diet, appetite improving Voiding: no voiding problems Patient reports feeling better. She states that her shortness of breath continues to improve. She still complains of a productive cough with yellow sputum. Her weakness and fatigue are improving. Her appetite is slowly improving. The patient denies fevers, chills, sweats, chest pain, palpitations , claudication, wheezing, nausea, vomiting, abdominal pain, dysuria, hematuria, urinary retention, paralysis, weakness, numbness and tingling. Additional Comments: See HPI for pertinent positives and negatives. All other systems reviewed and negative. (Jessica Park ., JOSE-C) Objective Vital Signs Date Time Temp Pulse Resp B/P (MAP) Pulse Ox O2 Delivery O2 Flow Rate FiO2 05/10/17 12:00 Nasal Cannula 2.0 05/10/17 11:53 36.9 86 18 103/68 (80) 96 Nasal Cannula 2.0 05/10/17 11:22 77 18 97 Nasal Cannula 2.0 05/10/17 08:00 Nasal Cannula 2.0 05/10/17 07:44 36.7 82 19 176/89 (118) 93 Nasal Cannula 2.0 05/10/17 07:04 75 18 98 Nasal Cannula 2.0 05/10/17 04:00 Nasal Cannula 2.0 05/10/17 03:30 36.3 80 17 145/80 (101) 93 Nasal Cannula 2.0 05/10/17 00:00 Nasal Cannula 2.0 05/09/17 23:35 36.7 80 16 104/65 (78) 95 Nasal Cannula 2.0 05/09/17 20:00 Nasal Cannula 2.0 05/09/17 19:49 37.0 82 16 129/85 (100) 97 Nasal Cannula 2.0 05/09/17 19:27 78 18 97 Nasal Cannula 2.0 05/09/17 15:57 36.7 87 16 144/81 (102) 96 Nasal Cannula 2.0 05/09/17 15:53 93 Nasal Cannula 2.0 Humidified Oxygen 05/09/17 14:55 78 18 97 Nasal Cannula 4.0 (Jessica Park ., JOSE-C) Physical Exam Notes: General appearance: +Underweight. Well-developed, no apparent distress Head: Normocephalic, atraumatic Eyes: Normal inspection, PERRL, EOMI ENT: Normal ENT inspection, hearing grossly normal, pharynx normal Neck: Supple, no JVD, trachea midline Respiratory/Chest: +Very diminished breath sounds, tight with poor air movement. Currently on 2L NC. Lungs clear to auscultation, no respiratory distress Cardiovascular: +Systolic murmur. Regular rate & rhythm, no gallop Abdomen/GI: Normal bowel sounds, non-tender, soft Extremities/Musculoskeletal: Normal inspection, no calf tenderness, no pedal edema Neurological/Psych: Alert, normal mood/affect, oriented x 3 Skin: Normal color, warm/dry, no rash (Jessica Park ., JOSE-C) Laboratory Results Last 24 Hours Test 05/10/17 05:12 White Blood Count 10.45 K/uL Red Blood Count 4.03 M/uL Hemoglobin 11.5 g/dL Hematocrit 34.8 % Mean Corpuscular Volume 86.4 fL Mean Corpuscular Hemoglobin 28.5 pg Mean Corpuscular Hemoglobin Concent 33.0 g/dl RDW Standard Deviation 45.8 fL RDW Coefficient of Variation 14.5 % Platelet Count 220 K/uL Mean Platelet Volume 9.4 fL Sodium Level 133 mmol/L Potassium Level 4.4 mmol/L Chloride Level 97 mmol/L Carbon Dioxide Level 32 mmol/L Anion Gap 4.0 mmol/L Blood Urea Nitrogen 14 mg/dl Creatinine 0.62 mg/dl Est Creatinine Clear Calc Drug Dose 54.5 ml/min Estimated GFR () 106.6 Estimated GFR (Non- 92.0 BUN/Creatinine Ratio 22.4 Random Glucose 110 mg/dl Calcium Level 8.7 mg/dl Magnesium Level 1.9 mg/dl Total Bilirubin 0.4 mg/dl Aspartate Amino Transf (AST/SGOT) 24 U/L Alanine Aminotransferase (ALT/SGPT) 19 U/L Alkaline Phosphatase 64 U/L Total Protein 6.0 gm/dl Albumin 2.8 gm/dl Globulin 3.2 gm/dl Albumin/Globulin Ratio 0.9 (Jessica Park ., PA-C) Assessment and Plan 71 y/o female with a history carotid artery disease, HTN, HLD, COPD, depression , and osteoporosis who presents with PNA and COPD exacerbation. Acute hypoxic respiratory failure and sepsis secondary to CAP--improving -Admit to telemetry. No acute events overnight, pt in sinus rhythm with HR 70s- 90s. Tele and vitals remain stable, will transfer to med/surg -O2 by protocol. Currently on 2L, down from 5-6 yesterday. Does not wear oxygen at home -Continue Levaquin, day #3 -Lactic acidosis resolved, tachycardia resolved -D/C IVF -Leukocytosis resolving. WBC 10.45 on 05/10, down from 14.73 -Continue scheduled DuoNebs -Flu PCR negative COPD exacerbation secondary to CAP--stable, lungs sounds very tight/diminished -Decrease Solu-Medrol to 60 mg IV q12h -Nebs as above -Recommend outpatient PFTs to confirm COPD Tobacco use -Encouraged smoking cessation HTN, HLD--stable -Continue ASA, clonidine 0.2 mg PO BID, Toprol XL 100 mg PO qd, losartan 50 mg PO qd, Lipitor 80 mg PO qd Depression--stable -Continue Seroquel 50 mg PO qd and Zoloft 100 mg PO BID Osteoporosis, vitamin D deficiency -Continue Vitamin D supplement Severe protein calorie malnutrition--appetite is improving -Boost TIDM DVT prophylaxis -Enoxaparin 40 mg SC q24h Code Status -Level I, FULL RESUSCITATION STATUS Dispo -Lives home alone -PT/OT recommend return to home when medically stable (Jessica Park ., PANeoC) I personally interviewed and examined the patient. I agree with history of present illness and physical exam mentioned above, I also performed my own history taking and examination. Past medical history and review of system has been obtained by myself I reviewed all pertinent labs and studies Reviewed current medications I discussed and formulated of the assessment and plan mentioned above. Please refer to the Summary mentioned below. 71-year-old female with hypertension, dyslipidemia, COPD, carotid artery disease who presented to the hospital with acute respiratory failure secondary to pneumonia and COPD exacerbation. Patient was placed initially on BiPAP, started on antibiotics/bronchodilators and steroids. Patient significantly improved, currently off BiPAP, continue supportive care, continue steroids/bronchodilators/antibiotic. When appropriate start physical therapy / occupational therapy She improved today, oxygen supplement is titrated down to 2 L Will require two-step test before discharge tomorrow General Appearance: not in acute distress Eyes: normal Sclerae, extraocular muscle intact ENT: hearing grossly normal Neck: supple Respiratory/Chest: normal air entry bilateral ,no respiratory distress, no accessory muscle use Cardiovascular: regular rate, rhythm, no murmur Abdomen: non tender, soft, no masses Extremities: no edema Neurologic/Psychiatric: Awake alert oriented times place and person moves all extremities sensation intact cranial nerves II-12 appear to be intact Skin: normal color, warm/dry, no rash [facility] Green [facility], [facility] (Sahra Amin MD)
[2017-05-10] MEDS: ENOXAPARIN 40 MG/0.4 ML SYR SC SCH (18:01)
[2017-05-10] MEDS: QUETIAPINE FUMARATE 25 MG TAB PO SCH (20:23)
[2017-05-10] MEDS: ATORVASTATIN 40 MG TAB PO SCH (20:24)
[2017-05-11] MEDS: ALBUT/IPRATROP 3MG/0.5MG NEB 3 ML VIAL INH SCH ×2 (07:25→11:27)
[2017-05-11 07:26] VITALS: PULSE 74; O2SAT 96
[2017-05-11 07:43] VITALS: BP 154/84; PULSE 75; TEMP 36.7; O2SAT 98
[2017-05-11 07:44] LABS: HEMATOCRIT 34.3 % (37-47); HEMOGLOBIN 11.4 g/dL (12.0-16.0); MEAN CELL VOLUME 86.4 fL (80-100); MEAN CORPUSCULAR HEMOGLOBIN 28.7 pg (25-34); MEAN CORPUSCULAR HGB CONC 33.2 g/dl (32-36); MEAN PLATELET VOLUME 9.2 fL (7.4-10.4); PLATELET COUNT 235 K/uL (130-400); RED CELL DISTRIBUTION WIDTH CV 14.8 % (11.5-14.5); RED CELL DISTRIBUTION WIDTH SD 46.6 fL (36.4-46.3)
[2017-05-11] MEDS: BOOST PLUS VANILLA PO SCH (08:00)
[2017-05-11] MEDS: CLONIDINE HCL 0.1 MG TAB PO SCH (08:14)
[2017-05-11] MEDS: LOSARTAN POTASSIUM 50 MG TAB PO SCH (08:16)
[2017-05-11] MEDS: ASPIRIN 81 MG ECTAB PO SCH (08:16)
[2017-05-11 08:17] LABS: CALCIUM 8.7 mg/dl (8.5-10.1); CREATININE 0.56 mg/dl (0.60-1.20); POTASSIUM 4.1 mmol/L (3.5-5.1)
[2017-05-11] MEDS: METOPROLOL SUCC 50MG EXT REL TAB PO SCH (08:17)
[2017-05-11] MEDS: CHOLECALCIFEROL 1000 INTER.UNIT TAB PO SCH (08:18)
[2017-05-11] MEDS: SERTRALINE HCL 100 MG TAB PO SCH (08:19)
[2017-05-11] MEDS: LEVOFLOXACIN 750 MG TAB PO SCH (10:58)
[2017-05-11] MEDS: METHYLPREDNISOLONE IV 60 MG in SYRINGE 0 ML IV SCH (10:59)
[2017-05-11 11:27] VITALS: PULSE 73; O2SAT 89
[2017-05-11] MEDS: BOOST BREEZE NUTRITION DRINK 1 BOX PO SCH (12:00)
[2017-05-11] MEDS ORDERED: TIOTROPIUM BROMIDE 5 PUFF/90 MCG INH INH ONE (14:39)
[2017-05-11] MEDS ORDERED: BUDESONIDE/FORMOTEROL FUMARATE 160/4.5 60 PUFFS/INHALER INH ONE (14:39)
[2017-05-11] MEDS ORDERED: LVQ750 PO (14:49)
[2017-05-11] MEDS ORDERED: SYMIN160 INH (14:49)
[2017-05-11] MEDS ORDERED: SPRIN/30 INH (14:49)
[2017-05-11] MEDS ORDERED: PRED10TA PO (14:49)
[2017-05-11 15:12] VITALS: BP 116/79; PULSE 91; TEMP 36.7; O2SAT 99
--- NOTE | 2017-05-11 15:31 | Discharge Instructions ---
Discharge Instructions Date of Service May 11, 2017. Admission Reason for Admission: Community Acquired Bacterial Pneumonia, Sepsis Discharge Discharge Diagnosis / Problem: Sepsis, pneumonia, acute respiratory failure Discharge Goals Goal(s): Decrease discomfort, Improve function, Diagnostic testing, Therapeutic intervention Activity Recommendations Activity Limitations: resume your previous activity (as tolerated) . Instructions / Follow-Up Instructions / Follow-Up You were admitted to the hospital with difficulty breathing. You were found to have pneumonia. Your imaging is also consistent with underlying pulmonary disease called emphysema, which is related to your history of smoking. The pneumonia exacerbated your underlying pulmonary disease, contributing to your trouble breathing. You were treated with antibiotics, steroids, and breathing treatments. As you are feeling better, you are now medically stable for discharge. Your respiratory test showed that you currently require 2 liters of oxygen on at all times, this will be set up for you at home. This may just be temporary as you are recovering from the pneumonia. To confirm your chronic pulmonary disease, you will be established with a car porter (lung specialist ) to perform pulmonary function tests and manage your treatment. Medications: *Please take Levaquin 750 mg daily for 3 more days. This is the antibiotic that you were receiving in the hospital. *Please take the follow prednisone taper as directed. This is an oral steroid to help your breathing. -Take 4 tablets daily for 2 days, then -Take 2 tablets daily for 2 days, then -Take 1 tablet daily for 2 days, then stop *Prescriptions for two new inhalers have been provided. You may hold off on filling these prescriptions until you follow up with pulmonology tomorrow as the car porter may change your treatment. The inhalers used in the hospital will be sent home with you to take until your appointment. -Take Symbicort inhaler 2 puffs twice a day and Spiriva 1 puff once a day. *Continue your home medications as prescribed. Follow up: *You have been scheduled to see the car porter tomorrow, May 12. Please arrive at 10:20 am. *You have been scheduled to follow up with your primary care provider next week. Please seek medical attention if you experience fevers, chills, sweats, dizziness/lightheadedness, loss of consciousness, chest pain, shortness of breath, nausea, vomiting, numbness or tingling. Current Hospital Diet Patient's current hospital diet: Regular Diet Discharge Diet Recommended Diet: AHA Diet (Heart Healthy) Pending Studies Studies pending at discharge: no Medical Emergencies . Who to Call and When: Medical Emergencies: If at any time you feel your situation is an emergency, please call 911 immediately. . Non-Emergent Contact Non-Emergency issues call your: Primary Care Provider, Seismograph Operator Call Non-Emergent contact if: you have a fever, you have any medication questions . Past History Medical & Surgical History: (1) Community acquired bacterial pneumonia (2) Respiratory failure (3) Sepsis . "Provider Documentation" section prepared by Jessica Park. .
--- NOTE | 2017-05-11 15:38 | Discharge Summary ---
Discharge Summary Date of Service May 11, 2017. Discharge Summary Admission Date: May 08, 2017 at 14:15 Discharge Date: May 11, 2017 Discharge Disposition: Home Principal Diagnosis: Sepsis, acute respiratory failure w/hypoxia, PNA, COPD exacerbation Problems/Secondary Diagnoses: Carotid artery disease, HTN, HLD, COPD, depression, osteoporosis Procedures: CHEST ONE VIEW PORTABLE HISTORY: 71 years-old Female eval for ptx/pna acute shortness of breath with hypoxia COMPARISON: Chest radiograph 09/29/2015, CT neck 03/16/2007 TECHNIQUE: Portable AP view of the chest FINDINGS: Cardiac silhouette is mildly enlarged, unchanged. Atherosclerosis of the aorta. Biapical pleural-parenchymal scarring is noted with emphysema. Mild perivascular congestion. Areas of chronic interstitial coarsening redemonstrated with new interstitial opacities, right greater than left. Additionally there are patchy bibasilar right greater than left alveolar opacities with trace right pleural effusion. The bones of the chest appear demineralized. Subacute or chronic fracture of the lateral left fifth rib. IMPRESSION: 1. Cardiomegaly and emphysema with chronic interstitial coarsening and mild pulmonary vascular congestion. 2. Patchy right greater than left bibasilar opacities with trace right pleural effusion suspicious for pneumonitis or atelectasis. Medication Reconciliation New Medications: Budesonide/Formoterol Fumarate (Symbicort 160/4.5 Inhaler) 120 Puffs/ Aero 2 PUFFS INH BID for 30 Days, #1 INHALER Prednisone (Prednisone) 10 Mg Tab 10 MG PO UD for 6 Days, #14 TAB Take 4 tablets for 2 days, then 2 tablets for 2 days, then 1 tablet for 2 days Tiotropium [place] (Spiriva Handihaler) 30 Puff/540 Mcg Aerp 1 CAP INH DAILY for 30 Days, #30 CAP Levofloxacin (Levofloxacin) 750 Mg Tab 750 MG PO DAILY@11 for 3 Days, #3 TAB Continued Medications: Aspirin (Aspirin EC Low Dose) 81 Mg Ectab 1 TAB PO DAILY, #1 Atorvastatin (Lipitor) 80 Mg Tab 80 MG PO HS, #30 TAB Cholecalciferol (Vitamin D3) 1,000 Inter.unit Tab 3000 UNIT PO DAILY, #1 Clonidine Hcl (Catapres) 0.1 Mg Tab 0.2 MG PO BID Losartan Potassium (Cozaar) 50 Mg Tab 1 TAB PO DAILY for 30 Days, #30 TAB 5 Refills Metoprolol Succinate (Metoprolol Succinate ER) 50 Mg Tabcr 100 MG PO DAILY, #1 Quetiapine Fumarate (Seroquel) 50 Mg Tab 50 MG PO HS, #1 0 Refills Sertraline (Zoloft) 100 Mg Tab 100 MG PO BID, #1 0 Refills Discharge Exam Patient reports feeling well. She denies any shortness of breath at rest or with exertion. She states she was able to walk for her 2 step without difficulty. She still reports a productive cough. She states her appetite, weakness and fatigue continue to improve. Constitutional: No fever, No chills, No sweats Eyes: No worsening of vision, No eye pain, No diplopia ENT: No hearing loss, No nasal symptoms, No trouble swallowing Respiratory: +Cough. No wheezing, No shortness of breath Cardiovascular: No chest pain, No claudication, No palpitations Abdomen: No pain, No nausea, No vomiting Musculoskeletal: No joint pain, No muscle pain, No swelling Genitourinary - Female: No dysuria, No urinary retention, No hematuria Neurologic: No paralysis, No weakness, No numbness/tingling Integumentary: No rash, No itch, No color change General appearance: +Underweight. Well-developed, no apparent distress Head: Normocephalic, atraumatic Eyes: Normal inspection, PERRL, EOMI ENT: Normal ENT inspection, hearing grossly normal, pharynx normal Neck: Supple, no JVD, trachea midline Respiratory/Chest: +Diminished breath sounds. Currently on 2L NC. Lungs clear to auscultation, no respiratory distress Cardiovascular: +Systolic murmur. Regular rate & rhythm, no gallop Abdomen/GI: Normal bowel sounds, non-tender, soft Extremities/Musculoskeletal: Normal inspection, no calf tenderness, no pedal edema Neurological/Psych: Alert, normal mood/affect, oriented x 3 Skin: Normal color, warm/dry, no rash Hospital Course 71 y/o female with a history carotid artery disease, HTN, HLD, COPD, depression , and osteoporosis who presents with PNA and COPD exacerbation. Acute hypoxic respiratory failure and sepsis secondary to CAP--improving -Admit to telemetry. No acute events overnight, pt in sinus rhythm with HR 70s- 90s. Tele and vitals remain stable, will transfer to med/surg -O2 by protocol. Currently on 2L. Does not wear oxygen at home -2 step shows pt will need 2L continuous for now. Case management to set up. -Continue Levaquin, day #4, will continue for 3 more days to complete course as outpatient -Lactic acidosis resolved, tachycardia resolved -D/C IVF -Leukocytosis resolved -Continue scheduled DuoNebs -Flu PCR negative COPD exacerbation secondary to CAP--stable, lungs sounds very tight/diminished -Decrease Solu-Medrol to 60 mg IV q12h. D/C with prednisone taper: 40 mg qd x 2 days, 20 mg x 2 days, 10 mg x 2 days -Nebs as above -Recommend outpatient PFTs to confirm COPD. Scheduled to see pulm 05/12 -Will d/c with Symbicort and Spiriva for COPD tx Tobacco use -Encouraged smoking cessation. Has not had any nicotine this admission, no issues. Son is supportive of cessation HTN, HLD--stable -Continue ASA, clonidine 0.2 mg PO BID, Toprol XL 100 mg PO qd, losartan 50 mg PO qd, Lipitor 80 mg PO qd Depression--stable -Continue Seroquel 50 mg PO qd and Zoloft 100 mg PO BID Osteoporosis, vitamin D deficiency -Continue Vitamin D supplement Severe protein calorie malnutrition--appetite is improving -Boost TIDM DVT prophylaxis -Enoxaparin 40 mg SC q24h Code Status -Level I, FULL RESUSCITATION STATUS Dispo -Lives home alone -PT/OT recommend return to home when medically stable -Son at bedside prior to discharge, will take pt home to live with him for a few days to help her PA Physician Supervision Note: I interviewed and examined the patient. Discussed with Jessica Park PAC and agree with findings and plan as documented in the note. Any exceptions or clarifications are listed here: None Patient is doing well however is requiring supplemental oxygen for home we are awaiting delivery from the [employer] son is at the bedside updated he will care for his mother at his home for the next few days until she recovers Vital signs are stable exception of hypoxia requiring oxygen two-step confirms this lung exam is poor air movement no focal air loss or egophony patient be discharged home on inhaled therapy for COPD tapering doses of prednisone and levofloxacin Documented By: Luis Felipe Arcos ADDENDUM by Dr. Bernard Called in evening by pharmacy, Symbicort not covered. Converted medication to low dose Moncho. Patient to see PCP and discuss titration to higher dose if warranted. Total Time Spent: Greater than 30 minutes This includes examination of the patient, discharge planning, medication reconciliation, and communication with other providers. Discharge Instructions Please refer to the electronic Patient Visit Report (Discharge Instructions) for additional information. Follow-Up Pulmonology 05/12 PCP Additional Copies To Rowena Silveira M.D.
[2017-05-11] MEDS ORDERED: TPRSR50 PO (15:58)
[2017-05-11] MEDS ORDERED: SERT-234 PO (15:58)
[2017-05-11] MEDS ORDERED: ATOR80TA PO (15:58)
[2017-05-11] MEDS ORDERED: CTP/1 PO (15:58)
[2017-05-11] MEDS ORDERED: LOSA50TA6 PO (15:58)
[2017-05-11] MEDS ORDERED: ASPEC81 PO (15:58)
[2017-05-11] MEDS ORDERED: QUET1TAB32 PO (15:58)
[2017-05-11 16:13] VITALS: BP 116/79; PULSE 91; TEMP 36.7; O2SAT 99
[2017-05-11] MEDS ORDERED: BUDESONIDE/FORMOTEROL FUMARATE 160/4.5 60 PUFFS/INHALER INH SCH (20:00)
[2017-05-12] MEDS ORDERED: TIOTROPIUM BROMIDE 5 PUFF/90 MCG INH INH SCH (08:00)
== END 2017-05-11 20:31 | disposition home or self-care (01) | DRG 871 ==
LOC: EDBD 13:01 → C.EDC 13:03 → C.2T 14:15 → ENRESERV 14:26 → C.MS4W 05-10 15:02
PROVIDERS: ADMIT Family Medicine; ATTEND Internal Medicine
DX: A41.9 Sepsis, unspecified organism (principal); J96.01 Acute respiratory failure with hypoxia; J18.9 Pneumonia, unspecified organism; E43 Unspecified severe protein-calorie malnutrition; J44.1 Chronic obstructive pulmonary disease with (acute) exacerbation; Z68.1 Body mass index [BMI] 19.9 or less, adult; J44.0 Chronic obstructive pulmonary disease with (acute) lower respiratory infection; M99.08 Segmental and somatic dysfunction of rib cage; M99.02 Segmental and somatic dysfunction of thoracic region; I10 Essential (primary) hypertension; E78.00 Pure hypercholesterolemia, unspecified; E78.5 Hyperlipidemia, unspecified; M81.0 Age-related osteoporosis without current pathological fracture; E55.9 Vitamin D deficiency, unspecified; F32.9 Major depressive disorder, single episode, unspecified; F17.210 Nicotine dependence, cigarettes, uncomplicated; Z79.82 Long term (current) use of aspirin; Z79.899 Other long term (current) drug therapy

== ENCOUNTER → 2017-05-19 | Outpatient (CLI) | payer OTHER ==
[~2017-05-19] MED LIST changes: +ASPEC81 PO; +ATOR80TA PO; +LOSA50TA6 PO; +LVQ750 PO; -METO-596 PO; -SIMV40TA2 PO; +SPRIN/30 INH; +SYMIN160 INH; +TPRSR50 PO; +VTMD1000 PO
[2017-05-19 09:50] LABS: HEMATOCRIT 31.5 % (37-47); HEMOGLOBIN 10.1 g/dL (12.0-16.0); MEAN CELL VOLUME 88.2 fL (80-100); MEAN CORPUSCULAR HEMOGLOBIN 28.3 pg (25-34); MEAN CORPUSCULAR HGB CONC 32.1 g/dl (32-36); MEAN PLATELET VOLUME 9.8 fL (7.4-10.4); PLATELET COUNT 242 K/uL (130-400); RED CELL DISTRIBUTION WIDTH CV 14.5 % (11.5-14.5); RED CELL DISTRIBUTION WIDTH SD 47.4 fL (36.4-46.3); WHITE BLOOD COUNT 6.34 K/uL (4.8-10.8)
[2017-05-19 10:06] LABS: ALBUMIN 2.6 gm/dl (3.4-5.0); ALT/SGPT 16 U/L (12-78); AST/SGOT 18 U/L (15-37); BLOOD UREA NITROGEN 10 mg/dl (7-18); CALCIUM 8.9 mg/dl (8.5-10.1); CARBON DIOXIDE 35 mmol/L (21-32); GLUCOSE 76 mg/dl (70-99); POTASSIUM 3.8 mmol/L (3.5-5.1); SODIUM 137 mmol/L (136-145)
[2017-05-19 10:16] LABS: ALKALINE PHOSPHATASE 89 U/L (45-117); TOTAL PROTEIN 5.5 gm/dl (6.4-8.2)
== END ==
LOC: C.LABUPNIT 09:11
PROVIDERS: ATTEND Nurse Practitioner Family
DX: I10 Essential (primary) hypertension (principal); R94.6 Abnormal results of thyroid function studies

== ENCOUNTER → 2017-05-20 | Outpatient (CLI) | payer OTHER | LOC: C.LABUPNIT 15:00 | PROVIDERS: ATTEND Nurse Practitioner Family | DX: R39.15 Urgency of urination (principal) ==

== ENCOUNTER → 2017-06-22 | Outpatient (CLI) | payer OTHER ==
[~2017-06-22] MED LIST changes: -ASPEC81 PO; +ASPI-320 PO
--- NOTE | 2017-06-22 14:54 | DIAGNOSTIC IMAGING REPORT ---
CHEST 2 VIEWS ROUTINE CLINICAL HISTORY: CAP dyspnea COMPARISON STUDY: 05/08/2017 FINDINGS: Improving components of congestive failure. Diffuse interstitial prominence throughout both hemithoraces is improved. Diaphragms are flattened. IMPRESSION: Considerable improvement compared to the prior study. Lungs are now nearly clear. Baseline emphysematous change. The above report was generated using voice recognition software. It may contain grammatical, syntax or spelling errors. Electronically signed by: Mac Mclean M.D. 06/22/2017 2:53 PM Dictated Date/Time: 06/22/2017 2:51 PM
== END | disposition home or self-care (01) ==
LOC: C.RADPV 14:35
PROVIDERS: ATTEND Physician Assistant
DX: J18.9 Pneumonia, unspecified organism (principal)